=== PATIENT | female | born 1965 | race Caucasian/White ===

== ENCOUNTER → 2019-06-05 | Outpatient (REF) | payer BC ==
[2019-06-08 14:28] LABS: HPV HYBRID CAPTURE II Negative (Negative)
== END ==
LOC: M LAB LCGH 12:13
PROVIDERS: ATTEND Nurse Practitioner Adult Health
DX: Z12.4 Encounter for screening for malignant neoplasm of cervix (principal)
CPT/HCPCS: 87624; G0123